=== PATIENT | male | born 1955 | race Caucasian/White ===

== ENCOUNTER → 2017-02-19 | Outpatient (CLI) | payer OTHER ==
[~2017-02-19] MED LIST: BACTRIM DS TAB1 EACH PO; BAYER CHEWABLE81 MG PO; BENAZEPRIL-HCT1 EA11 PO; COLCRYS0.6 MG PO; COMBIVENT; INDOMETHACIN 2525 MG PO; KEFLEX500 M1 PO; MYSOLINE50 MG PO; PERCOCET 5-3251 EACH PO; PRILOSEC 20 MG20 MG PO; SIMVASTATIN40 MG PO; ZOLOFT50 MG PO
== END ==
LOC: RAD 08:47
DX: S93.602A Unspecified sprain of left foot, initial encounter (principal); X58.XXXA Exposure to other specified factors, initial encounter; Y92.89 Other specified places as the place of occurrence of the external cause; Y93.89 Activity, other specified; Y99.8 Other external cause status

== ENCOUNTER → 2017-04-26 | Outpatient (CLI) | payer OTHER | LOC: MRI 09:57 | DX: M47.896 Other spondylosis, lumbar region (principal); M48.06 Spinal stenosis, lumbar region; M48.07 Spinal stenosis, lumbosacral region ==

== ENCOUNTER → 2017-05-11 | Outpatient (CLI) | payer OTHER | LOC: ULTRA 08:18 | DX: N28.1 Cyst of kidney, acquired (principal) ==

== ENCOUNTER → 2018-03-15 | Outpatient (CLI) | payer OTHER | LOC: MRI 07:12 | DX: M47.816 Spondylosis without myelopathy or radiculopathy, lumbar region (principal); M51.26 Other intervertebral disc displacement, lumbar region; M48.061 Spinal stenosis, lumbar region without neurogenic claudication; I10 Essential (primary) hypertension; G20 Parkinson's disease; Z95.5 Presence of coronary angioplasty implant and graft ==

== ENCOUNTER → 2019-04-14 | Outpatient (CLI) | payer OTHER | LOC: RAD 06:49 | DX: J44.9 Chronic obstructive pulmonary disease, unspecified (principal) ==

== ENCOUNTER → 2019-05-13 | Outpatient (CLI) | payer OTHER | LOC: RAD 08:01 | DX: J44.9 Chronic obstructive pulmonary disease, unspecified (principal) ==

== ENCOUNTER → 2019-05-22 | Outpatient (CLI) | payer OTHER ==
[~2019-05-22] MED LIST changes: -COMBIVENT; +COMBIVENT INH; +LUNESTA3 MG PO; +MELATONIN3 M1 PO; +OMEPRAZOLE 20 M20 M1 PO; +PLAVIX 75 MG TA75 MG PO; +PRAMIPEXOLE DIHY1 MG PO; +SINEMET 25-1001 EAC1 PO; +TOPROL XL25 MG PO; +TRELEGY ELLIPT1 EACH INH
== END ==
LOC: CAT 07:35
DX: J84.10 Pulmonary fibrosis, unspecified (principal); R91.1 Solitary pulmonary nodule; I70.0 Atherosclerosis of aorta

== ENCOUNTER → 2019-06-20 | Outpatient (CLI) | payer OTHER ==
[~2019-06-20] VITALS: Ht 193 cm; Wt 122.5 kg
[~2019-06-20] MED LIST changes: -LUNESTA3 MG PO; -TRELEGY ELLIPT1 EACH INH
--- NOTE | ~2019-06-20 | HC ---
[facility] [place] [address] [place] [address] CONSULTATION Name: EMORY MAK Room #: REG [facility].#: [id number] Admission: 06/20/19 Attend Phys: Herb Phillip MD Discharge: Date of : 51 Report #: [id number] THIS REPORT FOR: //name// CC: Herb Fernandez CARDIOLOGY CONSULT HISTORY OF PRESENT ILLNESS: A 63-year-old male with documented coronary artery disease. Was seen by Dr. Phillip of Interventional Radiology, patient of Dr. Fernandez. Asked to evaluate for what suspected a stable coronary artery disease. History of a remote RCA stent perhaps 20 years ago. No prior damage that he is aware of. Has underlying COPD and Parkinsons. The stent was placed in [place], [place]. He is also followed by GI for adenomatous polyps, COPD, long time and continued tobacco use. Compliant with medications. Dr. Phillip addressing popliteal aneurysms and iliac disease today peripherally. I am asked to evaluate him for cardiac catheterization same setting due to symptoms. HOME MEDICATIONS: Have been baby aspirin, benazepril HCT 20/12.5, Sinemet 25/100, Lunesta, carbidopa/levodopa, Combivent, Ellipta, omeprazole, melatonin, simvastatin 40 and sertraline 50, Mirapex 1 mg. PAST MEDICAL HISTORY: Positive for coronary artery disease with stent placed to the right coronary 1996, hypertension, hypercholesterolemia, diabetes, COPD, dermoid cyst. SOCIAL HISTORY: Current tobacco user, alcohol use. He does have a . He is . FAMILY HISTORY: Mother and father both from lung cancer. No premature coronary disease. REVIEW OF SYSTEMS: Negative except for progressive dyspnea and shortness of breath. Obviously some component of COPD he does apparently. PHYSICAL EXAMINATION: VITAL SIGNS: Blood pressure is 160/76, pulse 70. HEENT: Eyes reveal xanthelasmas. Pharynx is clear. NECK: Shows preserved upstrokes without JVD or bruits. LUNGS: Prolonged expiratory phase. CARDIOVASCULAR: Distant heart tones are noted. S1, S2. ABDOMEN: Soft, slightly protuberant. EXTREMITIES: Reveal diminished distal pulses. There is a palpable left popliteal aneurysm. NEUROLOGIC: Nonfocal. SKIN: Warm and dry without xanthoma or ulcer. [address] [address] CONSULTATION Name: EMORY MAK Room #: REG [facility].#: [id number] Admission: 06/20/19 Attend Phys: Herb Phillip MD Discharge: Date of : 51 Report #: [id number] MUSCULOSKELETAL: No gross joint deformity. Generalized arthritic changes. ASSESSMENT: 1. Peripheral vascular disease with popliteal aneurysm SFA and iliac disease as described above. 2. Coronary artery disease with prior stent and stable anginal symptoms. 3. Chronic obstructive pulmonary disease. 4. Hypertension. 5. Hypercholesterolemia. 6. Continued tobacco use. RECOMMENDATIONS AND PLAN: We will proceed to the catheterization lab with Dr. Phillip after peripheral intervention and coronary intervention is indicated, at least coronary angiography to delineate the anatomy. Risks, benefits, alternatives were discussed. We will follow with you. Thank you for asking me to assist in the care of this patient. By: 1344 0300 /nt
[2019-06-20 09:39] VITALS: BP 146/91
--- NOTE | 2019-06-20 18:07 | CATHLAB ---
[facility] [address] [place] [address] INVASIVE PROCEDURE REPORT Name: EMORY MAK Room #: REG Sal#: [id number] Admission: 06/20/19 Attend Phys: Herb Phillip, Discharge: Date of : 51 Report #: [id number] THIS REPORT FOR: //name// APPROVED REPORT Study performed: 06/20/2019 12:41:08 Patient Details Patient Status: In-Patient Room #: The patient is a 63 year-old male Event Personnel Kenan Nugent Oracle Database Manager, Mojgan Moore Sandifer, David Scrub, Penny, Wes RN Procedures Performed Left Heart Cath w/LT [facility] [id number] [facility] Ind[facility] Chest pain Procedure Narrative A 8F 11CM BRITE-TIP sheath was inserted into the RFA 5F^. Coronary angiography was performed using coronary diagnostic catheters. The right coronary system was accessed and visualized with a JR4 catheter. The left coronary system was accessed and visualized with a JL4 catheter. The left ventricle was accessed and visualized with a PIGTAIL catheter. Left ventricular/Aortic Valve gradient assessed via catheter pullback. Left ventriculogram was performed in 30 degree projection. Closure device was deployed with a 8 Fr FISH. The patient tolerated the procedure well and there were no complications associated with the procedure. There was no hematoma. Intraoperative Conscious Sedation Sedation start time: 13.27 Case end Time: 14.05 Fentanyl 300 mcg Versed 6 mg Fluoro Time: 2.30 minutes Dose: DAP 62097.10 cGycm2 1314 mGy Contrast Type and Amount: Visipaque 175 ml Hemodynamics The aortic pressure is 168/78 mmHg with a mean of 114 mmHg. The left ventricular pressure is 160/10 mmHg with a mean of mmHg. The left [facility] [address] [place] [address] INVASIVE PROCEDURE REPORT Name: EMORY MAK Room #: [facility]#: [id number] Admission: 06/20/19 Attend Phys: Herb Phillip, Discharge: Date of : 51 Report #: [id number] ventricular end diastolic pressure is 31 mmHg. Pullback from the left ventricle to the aorta revealed no gradient across the aortic valve. Pullback from the left ventricle to the aorta revealed a mm gradient across the aortic valve. PCI Technique Lesion Percutaneous coronary intervention was performed on the Unspecified. Conclusion #1 normal left ventricular size and inferior basilar hypokinetic segment focal EF 55%. #2 short left main free of disease giving rise to LAD and circumflex #3 LAD is moderately heavily proximal and mid vessel calcification the ostial LAD is a 60-70% eccentric lesion with mild disease in the distal vessel. #4 circumflex OM also extensive calcification moderate disease is noted no high-grade occlusive disease. There is left to left collateralization of the occluded RCA. #5 RCA proximally occluded extensive collateralization via the left system. Recommendations and plan: Continue aggressive risk factor modification. No indication for intervention but will evaluate the ostial LAD lesion would nuclear stress testing. Patient to proceed on with peripheral vascular intervention. Follow-up will be arranged. <ELECTRONICALLY SIGNED> By: Kenan Nugent MD, [facility] 06/20/191806 06 06 Kenan Nugent MD, FACC /INF
== END | disposition home or self-care (01) ==
LOC: CATH 09:01
DX: R07.9 Chest pain, unspecified (principal); I25.10 Atherosclerotic heart disease of native coronary artery without angina pectoris; I70.212 Atherosclerosis of native arteries of extremities with intermittent claudication, left leg; I72.8 Aneurysm of other specified arteries; I70.1 Atherosclerosis of renal artery; I10 Essential (primary) hypertension; M10.9 Gout, unspecified; J44.9 Chronic obstructive pulmonary disease, unspecified; G20 Parkinson's disease; E78.5 Hyperlipidemia, unspecified; F17.210 Nicotine dependence, cigarettes, uncomplicated; Z98.890 Other specified postprocedural states; Z79.899 Other long term (current) drug therapy; Z82.49 Family history of ischemic heart disease and other diseases of the circulatory system; Z79.82 Long term (current) use of aspirin

== ENCOUNTER → 2019-07-30 | Outpatient (CLI) | payer OTHER ==
[~2019-07-30] VITALS: Ht 193 cm; Wt 120.2 kg
[~2019-07-30] MED LIST changes: +LUNESTA3 MG PO; +TRELEGY ELLIPT1 EACH INH
--- NOTE | 2019-08-01 17:06 | PATH ---
[facility] [address] [place] [address] PATHOLOGY RPT PROCEDURE Name: DAVIDJAZMINEMORY Room #: REG [facility]on.#: [id number] Admission: 07/30/19 Date of : 51 Discharge: Report #: [id number] Path Case #: [id number] LCA Accession Number: [id number] . 01 Material submitted: . colon - POLYP AT SIGMOID COLON. Modifiers: sigmoid . 01 Clinical history: . Preop DX: Hx of polyps and diverticulosis Postop DX: Colon polyps . 02 Diagnosis: Polyp, sigmoid polyp, endoscopic biopsy: - Tubular adenoma. - Negative for high-grade dysplasia. - Cauterized margin showing unremarkable mucosa. 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 02 Electronically signed: . Yue Wheeler MD, Pathologist NPI- [id number] . 01 Gross description: . Received in formalin labeled "Emory Mak, polyp at sigmoid colon," is a polypoid segment of dark brown soft tissue measuring 0.8 x 0.7 x 0.5 cm in greatest dimensions. The surgical margin is inked, and the specimen is trisected and submitted entirely in cassette A1. (DAC; 07/31/2019) XDC/XDC 07/31/2019 1249 Local . 02 Pathologist provided ICD-10: D12.5 . 02 CPT . 445229 Specimen Comment: A courtesy copy of this report has been sent to [phone], [phone] Specimen Comment: [phone] Specimen Comment: Report sent to and Performed at: [address] [id number] MD Jonathan Morton MD Phone: [phone] Performed at: [address] [id number] [address] [address] PATHOLOGY RPT PROCEDURE Name: EMORY MAK Room #: REG [facility] Huang#: [id number] Admission: 07/30/19 Date of : 51 Discharge: Report #: [id number] Path Case #: [id number] MD Yue Wheeler MD Phone: [phone]
--- NOTE | 2019-08-06 08:11 | P ---
[facility] [place] [address] PROCEDURE REPORT Name: EMORY MAK [facility] #: [facility] [id number] Admission: 07/30/19 Attend Phys: Orlando Alfredo Discharge: Date of : 51 Report #: [id number] THIS REPORT FOR: //name// CC: Orlando Fernandez MD DATE OF SERVICE: 07/30/2019 PROCEDURE PERFORMED: Colonoscopy with polypectomy. HISTORY OF PRESENT ILLNESS: The patient is a 63-year-old male with a history of colon polyps 5 years ago, here for routine followup. Denies any symptoms other than mild constipation. No family history of colon cancer. DESCRIPTION OF PROCEDURE: The risks and benefits of the procedure were explained to the patient, those risks including but not limited to bleeding, perforation and the risk of sedation. He understood these risks and gave informed consent. Propofol was given per anesthesia. Next, a digital rectal exam was initially performed, which was normal. Next, using a standard Olympus colonoscope, the scope was placed in the patient's anus and advanced under direct vision to the cecum. The overall prep was good in most areas, fair in some areas. Multiple washings and aspirations were performed. Most areas were visualized. The cecum and ileocecal valve were normal in appearance. The ascending, transverse and descending colon were normal. Multiple diverticula were noted in the sigmoid colon. Also noted in the sigmoid colon was a 7 mm partially pedunculated polyp. This was removed by snare cautery. The rectal mucosa was normal. On retroflexion, small nonbleeding internal hemorrhoids were noted. The scope was then withdrawn and the procedure terminated. The patient tolerated the procedure well. IMPRESSION: 1. Sigmoid colon polyp. 2. Sigmoid diverticulosis. 3. Internal hemorrhoids. 4. Otherwise, normal colonoscopy. RECOMMENDATIONS: 1. Await biopsy results. 2. Repeat colonoscopy in 3 years due to fair prep in areas. [address] [address] PROCEDURE REPORT Name: EMORY MAK Yolanda Room #: REG [facility] [id number] Admission: 07/30/19 Attend Phys: Orlando Alfredo Discharge: Date of : 53 Report #: [id number] Thank you for allowing me to participate in his care. <ELECTRONICALLY SIGNED> By: Orlando Arteaga MD 08/06/19 0811 0921 1037 Orlando Arteaga MD /nt
== END | disposition home or self-care (01) ==
LOC: GI 06-25 08:42
DX: K59.00 Constipation, unspecified (principal); D12.5 Benign neoplasm of sigmoid colon; K57.30 Diverticulosis of large intestine without perforation or abscess without bleeding; K64.8 Other hemorrhoids; Z86.010 Personal history of colon polyps; I10 Essential (primary) hypertension; I25.10 Atherosclerotic heart disease of native coronary artery without angina pectoris; I73.9 Peripheral vascular disease, unspecified; E78.5 Hyperlipidemia, unspecified; K21.9 Gastro-esophageal reflux disease without esophagitis; F32.9 Major depressive disorder, single episode, unspecified; F41.9 Anxiety disorder, unspecified; J43.9 Emphysema, unspecified; G20 Parkinson's disease; G47.30 Sleep apnea, unspecified; F17.210 Nicotine dependence, cigarettes, uncomplicated; Z98.890 Other specified postprocedural states; Z79.899 Other long term (current) drug therapy; Z88.8 Allergy status to other drugs, medicaments and biological substances; Z79.82 Long term (current) use of aspirin
CPT/HCPCS: 62110; 62900

== ENCOUNTER → 2019-08-29 | Outpatient (CLI) | payer OTHER | LOC: CAT 08:00 | DX: R91.1 Solitary pulmonary nodule (principal); I25.10 Atherosclerotic heart disease of native coronary artery without angina pectoris; R91.8 Other nonspecific abnormal finding of lung field; J84.10 Pulmonary fibrosis, unspecified; M47.814 Spondylosis without myelopathy or radiculopathy, thoracic region ==

== ENCOUNTER → 2019-10-21 | Outpatient (CLI) | payer OTHER | LOC: CAT 14:16 | DX: J84.10 Pulmonary fibrosis, unspecified (principal); R91.1 Solitary pulmonary nodule; I25.10 Atherosclerotic heart disease of native coronary artery without angina pectoris ==

== ENCOUNTER → 2019-10-30 | Outpatient (CLI) | payer OTHER | LOC: SJCVCIMAG 10:13 | DX: I65.23 Occlusion and stenosis of bilateral carotid arteries (principal); I10 Essential (primary) hypertension; I25.10 Atherosclerotic heart disease of native coronary artery without angina pectoris; I73.9 Peripheral vascular disease, unspecified; J44.9 Chronic obstructive pulmonary disease, unspecified; E78.00 Pure hypercholesterolemia, unspecified; F17.200 Nicotine dependence, unspecified, uncomplicated; Z79.82 Long term (current) use of aspirin; Z79.899 Other long term (current) drug therapy ==

== ENCOUNTER → 2020-02-06 | Outpatient (CLI) | payer OTHER | LOC: CAT 10:49 | PROVIDERS: ATTEND Pediatrics | DX: R91.8 Other nonspecific abnormal finding of lung field (principal); N28.1 Cyst of kidney, acquired; M51.26 Other intervertebral disc displacement, lumbar region; J98.4 Other disorders of lung; I25.10 Atherosclerotic heart disease of native coronary artery without angina pectoris ==

== ENCOUNTER → 2020-05-18 | Outpatient (CLI) | payer OTHER | LOC: SJCVCIMAG 08:40 | PROVIDERS: ATTEND Internal Medicine Cardiovascular Disease | DX: I25.10 Atherosclerotic heart disease of native coronary artery without angina pectoris (principal); I73.9 Peripheral vascular disease, unspecified; I72.4 Aneurysm of artery of lower extremity; I10 Essential (primary) hypertension; E78.00 Pure hypercholesterolemia, unspecified; G20 Parkinson's disease; J44.9 Chronic obstructive pulmonary disease, unspecified; F17.210 Nicotine dependence, cigarettes, uncomplicated; Z95.820 Peripheral vascular angioplasty status with implants and grafts; Z79.899 Other long term (current) drug therapy ==

== ENCOUNTER → 2020-12-14 | Outpatient (CLI) | payer OTHER | LOC: SJCVCIMAG 09:43 | PROVIDERS: ATTEND Internal Medicine Cardiovascular Disease | DX: I65.23 Occlusion and stenosis of bilateral carotid arteries (principal); I70.202 Unspecified atherosclerosis of native arteries of extremities, left leg; I72.4 Aneurysm of artery of lower extremity; I77.9 Disorder of arteries and arterioles, unspecified; I25.10 Atherosclerotic heart disease of native coronary artery without angina pectoris; I10 Essential (primary) hypertension; E78.00 Pure hypercholesterolemia, unspecified; J44.9 Chronic obstructive pulmonary disease, unspecified; G20 Parkinson's disease; R07.9 Chest pain, unspecified; R06.02 Shortness of breath; F17.210 Nicotine dependence, cigarettes, uncomplicated; Z95.5 Presence of coronary angioplasty implant and graft; Z98.890 Other specified postprocedural states; Z95.828 Presence of other vascular implants and grafts; Z79.82 Long term (current) use of aspirin; Z79.899 Other long term (current) drug therapy; Z82.49 Family history of ischemic heart disease and other diseases of the circulatory system ==

== ENCOUNTER → 2021-02-25 | Outpatient (CLI) | payer OTHER | LOC: SJCVCIMAG 08:28 | PROVIDERS: ATTEND Internal Medicine Cardiovascular Disease | DX: I08.1 Rheumatic disorders of both mitral and tricuspid valves (principal); R06.00 Dyspnea, unspecified ==

== ENCOUNTER → 2021-02-28 | Outpatient (CLI) | payer OTHER ==
[~2021-02-28] MED LIST changes: +AZITHROMYCIN500 MG PO; +PREDNISONE 10 M10 MG PO
[2021-02-28 11:09] LABS: CREATININE 1.1 mg/dL (0.7-1.3)
== END ==
LOC: CAT 09:49
PROVIDERS: ATTEND Pediatrics
DX: R91.1 Solitary pulmonary nodule (principal); J84.10 Pulmonary fibrosis, unspecified; K44.9 Diaphragmatic hernia without obstruction or gangrene; N28.1 Cyst of kidney, acquired; D71 Functional disorders of polymorphonuclear neutrophils; I70.0 Atherosclerosis of aorta; I25.10 Atherosclerotic heart disease of native coronary artery without angina pectoris

== ENCOUNTER 2021-04-10 03:41 | Emergency (ER) | payer OTHER ==
[~2021-04-10] VITALS: Ht 190.5 cm; Wt 117.9 kg
[~2021-04-10 03:41] MED LIST changes: -AZITHROMYCIN500 MG PO; -PREDNISONE 10 M10 MG PO
[2021-04-10 05:09] LABS: ABSOLUTE NEUTROPHILS 5.3 thou/uL (1.4-8.2); BASOPHILS 0.7 % (0.0-2.0); EOSINOPHILS 1.9 % (0.0-3.0); HEMATOCRIT 35.8 % (42.0-52.0); HEMOGLOBIN 11.9 gm/dL (14.0-18.0); LYMPHOCYTES 15.9 % (24.0-44.0); MCH 32.3 pg (26.0-34.0); MCHC 33.2 g/dL (28.0-37.0); MCV 97.4 fL (80.0-100.0); MONOCYTES 8.1 % (1.0-8.0); PLATELET COUNT 156 thou/uL (150-400); POLYS 73.4 % (36.0-66.0); RBC 3.68 mil/uL (4.50-6.00); RDW 16.6 % (10.5-14.5); WBC 7.2 thou/uL (4.0-11.0)
[2021-04-10 05:18] LABS: CALCIUM 8.7 mg/dL (8.5-10.1); CREATININE 1.1 mg/dL (0.7-1.3); POTASSIUM 4.3 mmol/L (3.5-5.1)
[2021-04-10 05:28] LABS: ALBUMIN 3.5 g/dL (3.4-5.0); TOTAL BILIRUBIN 0.7 mg/dL (0.2-1.0); TOTAL PROTEIN 7.1 g/dL (6.4-8.2)
[2021-04-10] MEDS ORDERED: PREDNISONE 10 M10 MG PO (05:54)
[2021-04-10] MEDS ORDERED: AZITHROMYCIN500 MG PO (05:54)
[2021-04-10 06:00] VITALS: BP 158/72
--- NOTE | 2021-04-11 07:28 | EKG ---
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
== END 2021-04-10 06:00 | disposition home or self-care (01) ==
LOC: ER 03:41
PROVIDERS: Emergency Medicine
DX: J44.1 Chronic obstructive pulmonary disease with (acute) exacerbation (principal); Z20.822 Contact with and (suspected) exposure to COVID-19; I10 Essential (primary) hypertension; E78.5 Hyperlipidemia, unspecified; F32.9 Major depressive disorder, single episode, unspecified; Z79.2 Long term (current) use of antibiotics; Z79.82 Long term (current) use of aspirin; Z79.899 Other long term (current) drug therapy

== ENCOUNTER → 2021-04-21 | Outpatient (CLI) | payer OTHER ==
[~2021-04-21] MED LIST changes: +AZITHROMYCIN500 MG PO; +CARBIDOPA-LEVO1 EAC7 PO; +PREDNISONE 10 M10 MG PO; +RASAGILINE MESYL1 MG PO; +ROSUVASTATIN CA20 MG PO; +VASCEPA1 GM PO
== END ==
LOC: RAD 09:03
PROVIDERS: ATTEND Pediatrics
DX: J98.4 Other disorders of lung (principal)

== ENCOUNTER 2021-04-23 08:02 | Inpatient (IN) | payer OTHER ==
[~2021-04-23] VITALS: Ht 188 cm; Wt 117.9 kg
[~2021-04-23 08:02] MED LIST changes: -CARBIDOPA-LEVO1 EAC7 PO; -RASAGILINE MESYL1 MG PO; -ROSUVASTATIN CA20 MG PO; -VASCEPA1 GM PO
[2021-04-23] MEDS ORDERED: CARBIDOPA-LEVO1 EAC7 PO (08:26)
[2021-04-23] MEDS ORDERED: RASAGILINE MESYL1 MG PO (08:28)
[2021-04-23] MEDS ORDERED: ROSUVASTATIN CA20 MG PO (08:29)
[2021-04-23] MEDS ORDERED: PLAVIX 75 MG TA75 MG PO (08:33)
[2021-04-23] MEDS ORDERED: VASCEPA1 GM PO (08:34)
[2021-04-23 08:59] LABS: BASOPHILS 0.4 % (0.0-2.0); EOSINOPHILS 1.1 % (0.0-3.0); HEMATOCRIT 38.7 % (42.0-52.0); HEMOGLOBIN 12.8 gm/dL (14.0-18.0); MCH 32.6 pg (26.0-34.0); MCV 98.8 fL (80.0-100.0); MONOCYTES 8.1 % (1.0-8.0); PLATELET COUNT 165 thou/uL (150-400); POLYS 75.4 % (36.0-66.0); RBC 3.92 mil/uL (4.50-6.00); RDW 16.9 % (10.5-14.5); WBC 6.7 thou/uL (4.0-11.0)
[2021-04-23 09:02] LABS: CREATININE 1.1 mg/dL (0.7-1.3); POTASSIUM 4.4 mmol/L (3.5-5.1)
[2021-04-23 09:12] LABS: ALBUMIN 3.9 g/dL (3.4-5.0); DIRECT BILIRUBIN 0.3 mg/dL (<0.1-0.2); TOTAL BILIRUBIN 1.4 mg/dL (0.2-1.0); TOTAL PROTEIN 7.3 g/dL (6.4-8.2)
[2021-04-23 13:45] VITALS: BP 146/55
[2021-04-23 14:00] VITALS: BP 152/92
--- NOTE | 2021-04-23 15:20 | NUR ---
ADMISSION NOTE: received pt to rm 204 from ED. Pt currently on RA, sating 95%. RT & pt agreeable for NC PRN. Pt given lasix, urinal at bedside & in bathroom. SR on monitor, SA & tachy after breathing treatment. Consents signed. High fall precautions in place d/t prev. fall. SBA to toilet, gait is steady. Band & socks on. Pt & educated about unit policies. All questions answered & no other needs at this time.
[2021-04-23 20:15] VITALS: BP 139/73
--- NOTE | 2021-04-24 02:43 | NUR ---
PT IS ALERT AND ORIENTED X4. LUNGS ARE CLEAR TO DIMINISHED. ABDOMEN IS ROUND AND SOFT. BOWEL SOUNDS ACTIVE NO EDEMA NOTED. NO SKIN ISSUES. AT BEDSIDE AND VISTED THIS EVENING BEFORE HOURS WHERE OVER. ON CPAP MACHINE AND SLEEP STUDY DONE PER RT. DENIES ANY PAIN. CALL LIGHT WITHIN REACH IF NEEDS ASISTANCE PER NURSING.
[2021-04-24 04:45] VITALS: BP 148/78
[2021-04-24 05:35] LABS: ABSOLUTE NEUTROPHILS 5.2 thou/uL (1.4-8.2); BASOPHILS 0.1 % (0.0-2.0); HEMATOCRIT 38.4 % (42.0-52.0); HEMOGLOBIN 12.8 gm/dL (14.0-18.0); LYMPHOCYTES 12.7 % (24.0-44.0); MCHC 33.5 g/dL (28.0-37.0); MCV 98.5 fL (80.0-100.0); PLATELET COUNT 164 thou/uL (150-400); POLYS 82.2 % (36.0-66.0); RBC 3.89 mil/uL (4.50-6.00); RDW 17.3 % (10.5-14.5); WBC 6.3 thou/uL (4.0-11.0)
[2021-04-24 05:47] LABS: ALBUMIN 3.2 g/dL (3.4-5.0); CALCIUM 8.8 mg/dL (8.5-10.1); CREATININE 1.1 mg/dL (0.7-1.3); MAGNESIUM 2.1 mg/dL (1.8-2.4); PHOSPHORUS 3.5 mg/dL (2.6-4.7); POTASSIUM 4.3 mmol/L (3.5-5.1); TOTAL PROTEIN 6.6 g/dL (6.4-8.2)
[2021-04-24 08:19] VITALS: BP 143/80
[2021-04-24 11:28] VITALS: BP 141/96
[2021-04-24 15:26] VITALS: BP 136/68
--- NOTE | 2021-04-24 18:20 | NUR ---
Assumed care of pt this AM. Pt is A&O x4, on RA. Complains of no chest pain & no shortness of air. in room. High fall precautions d/c'ed today. Monitoring I&O w/ urinal in bathroom. Up ad valerie. Continue to follow POC
[2021-04-24 19:36] VITALS: BP 141/85
[2021-04-25 00:37] VITALS: BP 144/92
[2021-04-25 03:57] LABS: ABSOLUTE NEUTROPHILS 8.4 thou/uL (1.4-8.2); BASOPHILS 0.1 % (0.0-2.0); EOSINOPHILS 0.1 % (0.0-3.0); HEMATOCRIT 38.3 % (42.0-52.0); LYMPHOCYTES 10.6 % (24.0-44.0); MCH 33.3 pg (26.0-34.0); MCV 98.1 fL (80.0-100.0); MONOCYTES 5.5 % (1.0-8.0); PLATELET COUNT 182 thou/uL (150-400); POLYS 83.7 % (36.0-66.0); RBC 3.91 mil/uL (4.50-6.00); RDW 17.5 % (10.5-14.5)
[2021-04-25 04:03] LABS: CALCIUM 8.9 mg/dL (8.5-10.1); MAGNESIUM 2.3 mg/dL (1.8-2.4); PHOSPHORUS 3.2 mg/dL (2.6-4.7); POTASSIUM 4.6 mmol/L (3.5-5.1)
[2021-04-25 04:55] VITALS: BP 149/82
[2021-04-25 07:35] VITALS: BP 144/88
--- NOTE | 2021-04-25 07:50 | NUR ---
PT RESTING QUIETLY IN ROOM WITH CPAP ON, NO C/O PAIN, VSS, VOIDING PER URINAL, WILL CON'T TO MONITOR PER PPOC.
--- NOTE | 2021-04-25 10:38 | NUR ---
ORDERS RECEIVED AND CHART REVIEWED. PER EMR, Pt IS UP AD HERBERT. SPOKE TO Pt AND HIS WHO BOTH STATE THAT Pt IS GETTING AROUND SAFELY, & Pt STATES THAT HE DOES NOT NEED/WANT ANY P.T. PRIOR TO D/C HE HAS HAD P.T. TWICE BEFORE AND KNOWS WHAT IT'S ABOUT AND DOES NOT NEED ANY P.T. PRIOR TO D/C THIS ADMIT. O.T. EVAL'D Pt AND D/C'D HIM. WILL D/C P.T. AT THIS TIME. NSG INFORMED.
[2021-04-25 11:25] VITALS: BP 132/79
[2021-04-25 15:25] VITALS: BP 149/82
--- NOTE | 2021-04-25 15:59 | NUR ---
PT RESTING COMFORTABLY. PT AFEBRILE, ADEQUATE UOP, NO BM, APPROPRIATE APPETITE. PT AND HAVE BEEN THOUROUGHLY UPDATED AND EDUCATED ON PT CONDITION AND POC. PT PROGRESSING TOWARDS POC.
[2021-04-25 20:15] VITALS: BP 159/82
--- NOTE | 2021-04-26 04:24 | NUR ---
RECEIVED PATIENT ON BED ALERT AND ORIENTED X4.ON ROOM AIR BREATHING SPONTANEOULSY, USES CPAP AT NIGHT DURING SLEEPING.HAD COMPLAINT FOR ACID REFLUX, INFORMED RAILROAD CROSSING PROTECTION MAINTAINER ORDERED TO GIVE TUMS PRN.ALL NEEDS ATTENDED.PATIENT PROGRESSING TOWARDS PLAN OF CARE.
[2021-04-26 04:55] VITALS: BP 141/67
--- NOTE | 2021-04-26 07:33 | EKG ---
[place] [address] [address] [facility] [place] [address] ELECTROCARDIOGRAM REPORT Name: OBDULIOEMORY ADAIR Room #: 204-P ADM IN M.R.#: [id number] Admission: 04/23/21 Attend Phys: Chasidy Marx MD Discharge: Date of : 51 Report #: [id number] [facility] ED Test Date: 2021-04-23 Test Time: 08:19:44 Pat Name: EMORY MAK Department: Room: 204 Gender: M Supervisor Winter: : 1955 Requested By: Lucinda Singh Order Number: [id number] MD: Jw Leone Measurements Intervals [place] Rate: 92 P: 68 RI: 167 QRS: 61 QRSD: 94 T: 41 QT: 364 QTc: 451 Interpretive Statements Sinus rhythm Atrial premature complex Left atrial enlargement Compared to ECG 04/10/2021 05:17:39 Atrial premature complex(es) now present Electronically Signed On 04-26-2021 7:33:44 CDT by Jw Leone [email or web address] <ELECTRONICALLY SIGNED> By: Jw Leone MD, [facility] 04/26/2133 8 8 Jw Leone MD, FACC /EPI
[2021-04-26 07:45] VITALS: BP 134/86
[2021-04-26 11:45] VITALS: BP 148/89
[2021-04-26] MEDS ORDERED: LEVALBUTER0.63 MG/3 INH (12:47)
[2021-04-26] MEDS ORDERED: VERAPAMIL HCL 880 M1 PO (12:47)
[2021-04-26] MEDS ORDERED: LASIX 40 MG TAB40 M1 PO (12:47)
[2021-04-26] MEDS ORDERED: PREDNISONE 20 M20 MG PO (12:47)
[2021-04-26 14:50] VITALS: BP 148/89
--- NOTE | 2021-04-26 15:31 | NUR ---
patient discharged, no questions or conerns at time of discharge. Taken by wheelchair to private vehicle with . iv and tele removed.
== END 2021-04-26 15:55 | disposition home or self-care (01) | DRG 291 ==
LOC: ER 08:02 → EROBS 10:36 → 2N 10:36
PROVIDERS: Emergency Medicine; ADMIT Internal Medicine; ATTEND Internal Medicine
PROC: 5A09457 Assistance with Respiratory Ventilation, 24-96 Consecutive Hours, Continuous Positive Airway Pressure (ICD-10-PCS; principal; 2021-04-23)
DX: I11.0 Hypertensive heart disease with heart failure (principal); J96.01 Acute respiratory failure with hypoxia; I50.31 Acute diastolic (congestive) heart failure; R65.11 Systemic inflammatory response syndrome (SIRS) of non-infectious origin with acute organ dysfunction; J44.1 Chronic obstructive pulmonary disease with (acute) exacerbation; I48.91 Unspecified atrial fibrillation; I50.33 Acute on chronic diastolic (congestive) heart failure; Z20.822 Contact with and (suspected) exposure to COVID-19; F32.9 Major depressive disorder, single episode, unspecified; E78.5 Hyperlipidemia, unspecified; F12.90 Cannabis use, unspecified, uncomplicated; I25.10 Atherosclerotic heart disease of native coronary artery without angina pectoris; G47.33 Obstructive sleep apnea (adult) (pediatric); F17.210 Nicotine dependence, cigarettes, uncomplicated; G20 Parkinson's disease; E66.9 Obesity, unspecified; E11.51 Type 2 diabetes mellitus with diabetic peripheral angiopathy without gangrene; M1A.00X0 Idiopathic chronic gout, unspecified site, without tophus (tophi); Z79.82 Long term (current) use of aspirin; Z95.5 Presence of coronary angioplasty implant and graft; Z83.3 Family history of diabetes mellitus; Z82.49 Family history of ischemic heart disease and other diseases of the circulatory system; Z68.33 Body mass index [BMI] 33.0-33.9, adult; Z71.6 Tobacco abuse counseling; Z95.820 Peripheral vascular angioplasty status with implants and grafts; Z79.899 Other long term (current) drug therapy
CPT/HCPCS: 10081

== ENCOUNTER → 2021-05-03 | Outpatient (CLI) | payer OTHER ==
[~2021-05-03] MED LIST changes: +CARBIDOPA-LEVO1 EAC7 PO; +LASIX 40 MG TAB40 M1 PO; +LEVALBUTER0.63 MG/3 INH; +PREDNISONE 20 M20 MG PO; +RASAGILINE MESYL1 MG PO; +ROSUVASTATIN CA20 MG PO; +VASCEPA1 GM PO; +VERAPAMIL HCL 880 M1 PO
== END ==
LOC: SJCVC 10:21
PROVIDERS: ATTEND Internal Medicine Cardiovascular Disease
DX: R94.31 Abnormal electrocardiogram [ECG] [EKG] (principal); I48.91 Unspecified atrial fibrillation; I25.10 Atherosclerotic heart disease of native coronary artery without angina pectoris; E78.00 Pure hypercholesterolemia, unspecified; I73.9 Peripheral vascular disease, unspecified; I77.9 Disorder of arteries and arterioles, unspecified; I11.0 Hypertensive heart disease with heart failure; I50.9 Heart failure, unspecified; J44.9 Chronic obstructive pulmonary disease, unspecified; F17.210 Nicotine dependence, cigarettes, uncomplicated; F12.90 Cannabis use, unspecified, uncomplicated; Z79.899 Other long term (current) drug therapy

== ENCOUNTER → 2021-05-24 | Outpatient (CLI) | payer OTHER ==
[~2021-05-24] MED LIST changes: +ALLOPURINOL 10100 M3 PO; +CARDIZEM CD240 M1 PO; +WELLBUTRIN XL300 MG PO; +XARELTO20 MG PO
== END ==
LOC: SJCVCIMAG 08:18
PROVIDERS: ATTEND Nuclear Medicine Nuclear Cardiology
DX: I08.3 Combined rheumatic disorders of mitral, aortic and tricuspid valves (principal); I48.91 Unspecified atrial fibrillation; R94.31 Abnormal electrocardiogram [ECG] [EKG]; I25.10 Atherosclerotic heart disease of native coronary artery without angina pectoris; J44.9 Chronic obstructive pulmonary disease, unspecified; I73.9 Peripheral vascular disease, unspecified; I77.9 Disorder of arteries and arterioles, unspecified; F17.210 Nicotine dependence, cigarettes, uncomplicated; I11.9 Hypertensive heart disease without heart failure; F12.90 Cannabis use, unspecified, uncomplicated; Z79.899 Other long term (current) drug therapy; Z95.818 Presence of other cardiac implants and grafts

== ENCOUNTER → 2021-05-26 | Outpatient (CLI) | payer OTHER ==
[~2021-05-26] VITALS: Ht 188 cm; Wt 119.0 kg
[2021-05-26 08:09] VITALS: BP 156/89
--- NOTE | 2021-05-26 09:15 | TEE ---
[facility] [address] [place] [address] TRANSESOPHAGEAL ECHOCARDIOGRAM Name: EMORY MAK Room #: REG [facility]#: [id number] Admission: 05/26/21 Attend Phys: Carlos Hinkle MD, Discharge: Date of : 51 Report #: [id number] THIS REPORT FOR: cc: Bhanu Fernandez MD, Rene P. MD Lundgren, Craig H. MD [facility] ~ APPROVED REPORT Study performed: 05/26/2021 07:52:17 EXAM: Transesophageal Echocardiogram with Doppler and cadioversion Patient Location: Out-Patient Room #: 9 Status: routine BSA: 2.43 HR: 96 bpm BP: 135/75 mmHg Rhythm: Atrial Fibrillation Other Information Study Quality: Good Indications Atrial Fibrillation Echo Enhancing Agent Indication: Rule out Shunt Agent(s) / Amount(s) Used: Agitated Saline 7 cc Procedure After obtaining informed consent, patient underwent transesophageal echo in the Attending Urologist Holding. Type of Sedation : Conscious Sedation Sedation was administered by Nurse. Sedation start time: 819 Case end Time: 834 Sedation was achieved intravenously with: Versed (6 mg) Fentanyl (100mcg) Transesophageal probe was inserted and advanced into esophagus without difficulty by Carlos Hinkle MD. Echo enhancement indication: R/O Septal defect. Echo enhancement agent administered: Agitated Saline The BEATRICE was performed without complications. Synchronized Cardioversion attempted: 100 Joules X 1, 120 Joules X 2, [facility] [address] [place] [address] TRANSESOPHAGEAL ECHOCARDIOGRAM Name: EMORY MAK Room #: REG [facility].#: [id number] Admission: 05/26/21 Attend Phys: Carlos Hinkle, Discharge: Date of : 51 Report #: [id number] 150 Joules X 1 Rhythm following Synchronized Cardioversion: Brief sinus then recurrent atrial fibrillation Throughout the procedure, the blood pressure, pulse oximetry, cardiac rhythm, and rate were monitored. The patient tolerated the procedure without adverse effects. Recovery from conscious sedation was uneventful and vital signs were stable. Left Ventricle The left ventricle is normal size. There is normal LV segmental wall motion. Mild concentric left ventricular hypertrophy. The left ventricular systolic function is normal. The left ventricular ejection fraction is within the normal range. LVEF is 55-60%. Right Ventricle The right ventricle is normal size. The right ventricular systolic function is normal. Atria Left atrium is dilated. No thrombus is visualized in the left atrium or appendage. No shunting by contrast bubble injection Right atrium is at the upper limits of normal. Aortic Valve The aortic valve is normal in structure. No aortic regurgitation is present. There is no aortic valvular stenosis. Mitral Valve Mild mitral annular calcification Mild to moderate mitral regurgitation. No evidence of mitral valve stenosis. Tricuspid Valve The tricuspid valve is normal in structure. Mild tricuspid regurgitation. Pulmonic Valve The pulmonary valve is normal in structure. There is no pulmonic valvular regurgitation. Great Vessels The aortic root is normal in size. Mild atherosclerotic plaque is present in the aorta. IVC is normal in size and collapses >50% with inspiration. Pericardium [facility] [address] [address] TRANSESOPHAGEAL ECHOCARDIOGRAM Name: EMORY MAK Room #: REG Sal#: [id number] Admission: 05/26/21 Attend Phys: Carlos Hinkle, Discharge: Date of : 51 Report #: [id number] There is no pericardial effusion. <Conclusion> The left ventricular systolic function is normal. There is normal LV segmental wall motion. LVEF is 55-60%. Left atrium is dilated. No thrombus is visualized in the left atrium or appendage. No shunting by contrast bubble injection The aortic valve is normal in structure. No aortic regurgitation or stenosis Mild mitral annular calcification. Mild to moderate mitral regurgitation. Mild atherosclerotic plaque is present in the aorta. There is no pericardial effusion. Inability to maintain sinus rhythm following 3 biphasic synchronous joules shocks. <ELECTRONICALLY SIGNED> By: Carlos Hinkle MD, [facility] 05/26/21914 4 4 Carlos Hinkle MD, FACC /INF
--- NOTE | 2021-05-26 15:33 | EKG ---
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: : 1955 Requested By: Carlos Hinkle Order Number: [id number] MD: Jw Leone Measurements Intervals [place] Rate: 95 P: DC: QRS: 56 QRSD: 85 T: 75 QT: 355 QTc: 447 Interpretive Statements Atrial fibrillation Compared to ECG 04/23/2021 08:19:44 Sinus rhythm no longer present Atrial premature complex(es) no longer present Atrial abnormality no longer present Electronically Signed On 05-26-2021 15:33:33 CDT by Jw Leone [email or web address] <ELECTRONICALLY SIGNED> By: Jw Leone MD, [facility] 05/26/21 1533 0748 7 Jw Leone MD, FAC /EPI
== END | disposition home or self-care (01) ==
LOC: CATH 06:25
PROVIDERS: ATTEND Internal Medicine
DX: I48.91 Unspecified atrial fibrillation (principal); I08.1 Rheumatic disorders of both mitral and tricuspid valves; I70.0 Atherosclerosis of aorta; I11.0 Hypertensive heart disease with heart failure; I50.30 Unspecified diastolic (congestive) heart failure; I25.10 Atherosclerotic heart disease of native coronary artery without angina pectoris; J44.9 Chronic obstructive pulmonary disease, unspecified; M10.9 Gout, unspecified; G20 Parkinson's disease; F17.210 Nicotine dependence, cigarettes, uncomplicated; Z98.890 Other specified postprocedural states; Z79.899 Other long term (current) drug therapy; Z82.49 Family history of ischemic heart disease and other diseases of the circulatory system

== ENCOUNTER → 2021-06-08 | Outpatient (CLI) | payer OTHER | LOC: SJCVC 13:17 | PROVIDERS: ATTEND Internal Medicine Cardiovascular Disease | DX: R94.31 Abnormal electrocardiogram [ECG] [EKG] (principal); I48.91 Unspecified atrial fibrillation; J44.9 Chronic obstructive pulmonary disease, unspecified; G47.33 Obstructive sleep apnea (adult) (pediatric); I25.10 Atherosclerotic heart disease of native coronary artery without angina pectoris; I73.9 Peripheral vascular disease, unspecified; G20 Parkinson's disease; E78.5 Hyperlipidemia, unspecified; E11.9 Type 2 diabetes mellitus without complications; F17.210 Nicotine dependence, cigarettes, uncomplicated; F12.90 Cannabis use, unspecified, uncomplicated; I50.30 Unspecified diastolic (congestive) heart failure; I11.0 Hypertensive heart disease with heart failure; Z95.818 Presence of other cardiac implants and grafts; Z95.828 Presence of other vascular implants and grafts ==

== ENCOUNTER → 2021-06-21 | Outpatient (CLI) | payer OTHER ==
[~2021-06-21] MED LIST changes: +DILT-XR120 MG PO; +MULTAQ 400 MG400 MG PO
[2021-06-21 09:57] LABS: CREATININE 1.2 mg/dL (0.7-1.3)
== END ==
LOC: CAT 08:57
PROVIDERS: ATTEND Internal Medicine Cardiovascular Disease
DX: I48.91 Unspecified atrial fibrillation (principal)

== ENCOUNTER 2021-06-23 06:28 | Observation (INO) | payer OTHER ==
[2021-06-23] VITALS (15 sets, daily range): BP systolic 122–171; BP diastolic 63–103
[~2021-06-23] VITALS: Ht 188 cm; Wt 120.2 kg
[~2021-06-23 06:28] MED LIST changes: -DILT-XR120 MG PO; -MULTAQ 400 MG400 MG PO
[2021-06-23 07:25] LABS: ABSOLUTE NEUTROPHILS 3.3 thou/uL (1.4-8.2); BASOPHILS 0.9 % (0.0-2.0); EOSINOPHILS 3.1 % (0.0-3.0); HEMATOCRIT 40.3 % (42.0-52.0); HEMOGLOBIN 13.5 gm/dL (14.0-18.0); LYMPHOCYTES 27.9 % (24.0-44.0); MCH 32.8 pg (26.0-34.0); MCHC 33.4 g/dL (28.0-37.0); MCV 98.1 fL (80.0-100.0); PLATELET COUNT 179 thou/uL (150-400); POLYS 58.1 % (36.0-66.0); RBC 4.11 mil/uL (4.50-6.00); RDW 16.4 % (10.5-14.5); WBC 5.7 thou/uL (4.0-11.0)
[2021-06-23 07:32] LABS: CALCIUM 9.1 mg/dL (8.5-10.1); CREATININE 1.1 mg/dL (0.7-1.3); POTASSIUM 4.2 mmol/L (3.5-5.1)
[2021-06-23 07:38] LABS: ALBUMIN 3.8 g/dL (3.4-5.0); TOTAL BILIRUBIN 0.7 mg/dL (0.2-1.0); TOTAL PROTEIN 7.4 g/dL (6.4-8.2)
[2021-06-23 07:43] LABS: APTT 28.4 Seconds (24.5-32.8); INR 1.11
[2021-06-23] MEDS ORDERED: MULTAQ 400 MG400 MG PO (16:52)
[2021-06-23] MEDS ORDERED: DILT-XR120 MG PO (16:52)
--- NOTE | 2021-06-23 17:11 | NUR ---
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 Pt SR on the monitor. Around 1540, pt had 11 sec run of vtach on the monitor. This nurse went into the room to check on pt & discovered that pts rt groin site had opened up. Pressure was started at 1544. Pressure was held for 50min without hemostasis achieved. This nurse contacted Dr. Alex x2 to make provider aware. Per Dr. Alex, continued to hold pressure until hemostasis was achieved at 1655. Pt & instructed about new bedrest start x4hr. New dressing was applied. Small hematoma proximal to stick site. Stat mag orders put in for tach. Will continue to monitor closely.
[2021-06-24 04:34] VITALS: BP 141/83
[2021-06-24 07:20] VITALS: BP 124/63
[2021-06-24 11:10] VITALS: BP 131/69
[2021-06-24 11:19] VITALS: BP 124/63
--- NOTE | 2021-06-24 11:38 | P ---
[facility] [place] [address] PROCEDURE REPORT Name: EMORY MAK Room #: 201-P [facility]..#: [id number] Admission: 06/23/21 Attend Phys: Gaurav Alex MD Discharge: Date of : 51 Report #: [id number] THIS REPORT FOR: cc: Bhanu Fernanedz MD, Rene P. MD Couchonnal, Luis F. MD ~ DATE OF PROCEDURE: 06/23/2021. PREOPERATIVE DIAGNOSIS: Atrial fibrillation. POSTOPERATIVE DIAGNOSES: Atrial fibrillation, typical atrial flutter and atypical atrial flutter. HISTORY: The patient is a 65-year-old with history of coronary artery disease, normal ejection fraction, COPD, recently started having symptomatic AFib, failed multiple attempts at cardioversion. He is here for AFib ablation. ANESTHESIA: The patient underwent general anesthesia with no anesthesia related complications. DESCRIPTION OF PROCEDURE: The patient had undergone informed consent. We prepped and draped in a standard fashion. At baseline, he was in atrial fibrillation. I obtained access to the right femoral vein x 3, placing an 8, 9 and 7-Cambodian short sheath using modified Seldinger technique. Under fluoroscopy, I then placed a decapolar catheter into the coronary sinus and an ICE catheter into the right atrium. Using intracardiac ultrasound, I verified there were two left and two right pulmonary veins and this was merged with the patient's CT scan. The patient was systemically heparinized. Transseptal was performed using SL1 sheath and a Bloom[place] needle, which was straightforward and then I exchanged for the cryosheath and the Lasso catheter was placed in the left atrium. A 3D voltage map of the left atrium was created and then we started ablating the pulmonary veins. The left superior pulmonary vein underwent two 4-minute freezes which resulted in isolation. The left inferior pulmonary vein underwent multiple freezes and would not isolate. I then turned my attention to the right superior pulmonary vein and performed a 3-minute freeze and the vein isolated at 37 seconds. The right inferior pulmonary vein underwent a 2-minute freeze and then I performed a 300-second freeze which resulted in isolation. The right inferior was also difficult to get good temps. I then decided to perform a posterior wall isolation as he had a complex fractionated atrial electrograms throughout the posterior wall. I performed a total of 9 freezes anchored from the left superior and the left inferior pulmonary vein. Each of these freezes was of 3 minutes duration and esophageal temperatures were monitored and were found to be stable. Next, a repeat voltage map was created and all veins were isolated except the left inferior pulmonary vein, which had very small signals along the anterior anna. I attempted a [facility] [address] [place] [address] PROCEDURE REPORT Name: EMORY MAK Room #: 201-P [facility] M.R.#: [id number] Admission: 06/23/21 Attend Phys: Gaurav Alex MD Discharge: Date of : 51 Report #: [id number] couple more freezes in this vein. While we prepped the ThermoCool ablation catheter, but these were unsuccessful. Therefore, I went up with a ThermoCool and there was one signal and ablation here resulted in isolation of the vein. I performed some additional ablation here as well. A repeat voltage map also showed that I had not completely isolated the posterior wall. Therefore, I completed the posterior wall isolation ablating along the roof and inferior portions of the left atrium. Of note, while isolating the right-sided veins, the patient had organized from atrial fibrillation into a right-sided atrial flutter with negative sawtooth flutter waves in the inferior leads and proximal to distal activation along the CS with a tachycardia cycle length of 270 milliseconds. After a repeat voltage map in the left atrium, which showed all veins isolated and that the posterior wall was now isolated, we moved onto the right atrium for atrial flutter ablation. I performed ablation at 50 hagen at 6 o'clock along the cavotricuspid isthmus and as we were ablating, the flutter transitioned from a proximal to distal activation into a vertical activation with a shorter cycle length. I continued ablating along the isthmus and there was no further signals here, which was verified with a voltage map and I repeated an activation map in the right atrium and this was no longer CTI dependent flutter and was left sided. At this point, I decided to just cardiovert the patient. The patient underwent a 120 joule cardioversion with advent of sinus rhythm, there were no other arrhythmias noted and intracardiac ultrasound verified, there is no pericardial effusion. As such, the patient received systemic protamine and once ACT was within acceptable range, catheters and sheaths were pulled. Hemostasis was obtained. There were no procedure related complications. CONCLUSION: 1. Successful AFib ablation with isolation of the pulmonary veins. 2. Successful posterior wall isolation with combination cryoablation and RF ablation. 3. Successful atrial flutter ablation with evidence of bidirectional block. 4. Another atypical atrial flutter, not further characterized, which was cardioverted. <ELECTRONICALLY SIGNED> By: Gaurav Alex MD 06/24/21 1138 1139 [id number] Gaurav Alex MD /nt
--- NOTE | 2021-06-24 11:56 | NUR ---
TOOK OVER CARE FOR THIS PATIENT AT 0700. PATIENT RESTING IN BED WHEN BEDSIDE REPORT WAS GIVEN; SPOUSE PRESENT FOR REPORT AND FOR DISCHARGE EDUCATION. PATIENT ON ROOM AIR, DENIES SHORTNESS OF BREATH OR CHEST PAIN. DENIES FATIGUE, HEADACHE, NAUSEA, VOMITING, DIZZINESS, OR PAIN IN THE LEGS. fALL PRECAUTIONS IN PLACE; PATIENT SBA TO BATHROOM. DISCHARGE EDUCATION AND MEDICATION EDUCATION GIVEN TO PATIENT; DENIES ANY QUESTIONS OR CONCERNS. PATIENT DISCHARGED VIA WHEELCHAIR BY NURSING STAFF WITH SPOUSE PRESENT TO PERSONAL VEHICLE.
== END 2021-06-24 14:01 | disposition home or self-care (01) ==
LOC: CATH 06:28 → 2N 14:58
PROVIDERS: ADMIT Internal Medicine Cardiovascular Disease; ATTEND Internal Medicine Cardiovascular Disease
DX: I48.91 Unspecified atrial fibrillation (principal); I48.92 Unspecified atrial flutter; Z20.822 Contact with and (suspected) exposure to COVID-19; I25.10 Atherosclerotic heart disease of native coronary artery without angina pectoris; I73.9 Peripheral vascular disease, unspecified; E78.5 Hyperlipidemia, unspecified; E11.9 Type 2 diabetes mellitus without complications; J44.9 Chronic obstructive pulmonary disease, unspecified; G47.33 Obstructive sleep apnea (adult) (pediatric); G20 Parkinson's disease; I11.0 Hypertensive heart disease with heart failure; I50.30 Unspecified diastolic (congestive) heart failure; F17.210 Nicotine dependence, cigarettes, uncomplicated; Z79.82 Long term (current) use of aspirin; Z79.899 Other long term (current) drug therapy
CPT/HCPCS: 62110; 62900; 70005

== ENCOUNTER → 2021-08-02 | Outpatient (CLI) | payer OTHER ==
[~2021-08-02] MED LIST changes: +DILT-XR120 MG PO; +MULTAQ 400 MG400 MG PO
== END ==
LOC: SJCVCIMAG 08:07
PROVIDERS: ATTEND Nuclear Medicine Nuclear Cardiology
DX: I70.202 Unspecified atherosclerosis of native arteries of extremities, left leg (principal); I25.10 Atherosclerotic heart disease of native coronary artery without angina pectoris; I48.0 Paroxysmal atrial fibrillation; I77.9 Disorder of arteries and arterioles, unspecified; R06.00 Dyspnea, unspecified; G20 Parkinson's disease; F12.10 Cannabis abuse, uncomplicated; M10.9 Gout, unspecified; I50.30 Unspecified diastolic (congestive) heart failure; G47.30 Sleep apnea, unspecified; I72.4 Aneurysm of artery of lower extremity; I11.0 Hypertensive heart disease with heart failure; J43.9 Emphysema, unspecified; E78.00 Pure hypercholesterolemia, unspecified; Z79.899 Other long term (current) drug therapy; Z95.828 Presence of other vascular implants and grafts; Z87.891 Personal history of nicotine dependence; Z82.49 Family history of ischemic heart disease and other diseases of the circulatory system

== ENCOUNTER → 2021-08-16 | Outpatient (CLI) | payer OTHER | LOC: RAD 10:21 | PROVIDERS: ATTEND Family Medicine | DX: S20.212A Contusion of left front wall of thorax, initial encounter (principal); M19.012 Primary osteoarthritis, left shoulder; X58.XXXA Exposure to other specified factors, initial encounter; Y92.89 Other specified places as the place of occurrence of the external cause; Y93.89 Activity, other specified; Y99.8 Other external cause status ==

== ENCOUNTER 2021-08-17 20:19 | Emergency (ER) | payer OTHER ==
[~2021-08-17] VITALS: Ht 188 cm; Wt 120.7 kg
[2021-08-17 23:47] LABS: ABSOLUTE NEUTROPHILS 5.6 thou/uL (1.4-8.2); BASOPHILS 0.5 % (0.0-2.0); EOSINOPHILS 2.2 % (0.0-3.0); HEMOGLOBIN 13.2 gm/dL (14.0-18.0); LYMPHOCYTES 21.4 % (24.0-44.0); MCH 32.5 pg (26.0-34.0); MCHC 33.8 g/dL (28.0-37.0); MCV 96.2 fL (80.0-100.0); MONOCYTES 9.2 % (1.0-8.0); PLATELET COUNT 176 thou/uL (150-400); POLYS 66.7 % (36.0-66.0); RBC 4.05 mil/uL (4.50-6.00); RDW 15.4 % (10.5-14.5); WBC 8.4 thou/uL (4.0-11.0)
[2021-08-17 23:52] LABS: CALCIUM 9.5 mg/dL (8.5-10.1); CREATININE 1.1 mg/dL (0.7-1.3); POTASSIUM 4.3 mmol/L (3.5-5.1)
[2021-08-17 23:54] LABS: INR 1.37; PROTIME 14.7 Seconds (10.5-12.1)
[2021-08-17 23:57] LABS: TOTAL BILIRUBIN 0.7 mg/dL (0.2-1.0)
[2021-08-18 02:30] VITALS: BP 159/75
[2021-08-30] MEDS ORDERED: BELSOMRA10 MG PO (07:50)
== END 2021-08-18 02:40 | disposition home or self-care (01) ==
LOC: ER 20:19
PROVIDERS: Emergency Medicine
DX: S20.219A Contusion of unspecified front wall of thorax, initial encounter (principal); J44.9 Chronic obstructive pulmonary disease, unspecified; I48.91 Unspecified atrial fibrillation; I25.10 Atherosclerotic heart disease of native coronary artery without angina pectoris; M10.9 Gout, unspecified; I10 Essential (primary) hypertension; G20 Parkinson's disease; I50.9 Heart failure, unspecified; F12.90 Cannabis use, unspecified, uncomplicated; Z79.891 Long term (current) use of opiate analgesic; Z79.899 Other long term (current) drug therapy; W18.30XA Fall on same level, unspecified, initial encounter; Y93.89 Activity, other specified; Y92.89 Other specified places as the place of occurrence of the external cause; Y99.8 Other external cause status

== ENCOUNTER → 2021-08-30 | Outpatient (CLI) | payer OTHER ==
[~2021-08-30] VITALS: Ht 188 cm; Wt 120.7 kg
[~2021-08-30] MED LIST changes: +BELSOMRA10 MG PO
[2021-08-30 07:52] VITALS: BP 135/70
[2021-08-30 08:31] LABS: HEMATOCRIT 35.1 % (42.0-52.0); HEMOGLOBIN 11.8 gm/dL (14.0-18.0); MCH 32.6 pg (26.0-34.0); MCHC 33.7 g/dL (28.0-37.0); MCV 96.8 fL (80.0-100.0); RBC 3.63 mil/uL (4.50-6.00); RDW 15.7 % (10.5-14.5); WBC 9.4 thou/uL (4.0-11.0)
[2021-08-30 08:35] LABS: CALCIUM 9.3 mg/dL (8.5-10.1); CREATININE 1.1 mg/dL (0.7-1.3)
[2021-08-30 08:40] LABS: ALBUMIN 3.8 g/dL (3.4-5.0); TOTAL BILIRUBIN 0.6 mg/dL (0.2-1.0); TOTAL PROTEIN 7.6 g/dL (6.4-8.2)
--- NOTE | 2021-08-30 13:50 | NUR ---
PT REQUESTING URINAL. PTS AT BEDSIDE TO ASSIST PT.
--- NOTE | 2021-08-30 14:05 | NUR ---
PT VOIDED 500ML CLEAR URINE
--- NOTE | 2021-08-30 15:08 | NUR ---
PT RESTING COMFORTABLE A/OX3 WITH NO C/O. PT HAS NO REQEUST OR CONCERNS AT THIS TIME.
--- NOTE | 2021-08-30 17:16 | CATHLAB ---
[facility] [place] [address] INVASIVE PROCEDURE REPORT Name: EMORY MAK Room #: REG [facility] ChristopherSandySamantha.#: [id number] Admission: 08/30/21 Attend Phys: Herb Phillip MD Discharge: Date of : 51 Report #: [id number] THIS REPORT FOR: cc: Bhanu Fernandez MD, Rene P. MD Mancuso, Gerald M. MD [facility] ~ APPROVED REPORT Study performed: 08/30/2021 12:15:25 Patient Details Patient Status: Out-Patient Room #: The patient is a 65 year-old male Event Personnel Kenan Nugent Bowl Topper, Michael Guerrero RN RN, Jelena Aguirre RTR, MOTOR BIKE MECHANIC Monitor, Tori Nails RTR LouisaubElton Dexter RN, anode worker Performed Art Access - R femoral artery* Left Heart Cath w/or w/o Coronaries [id number] [facility] Hemostasis w/ Mynx Indication Positive stress test Procedure Narrative A SHEATH BRITE-TIP 6F X 11CM ([id number]) sheath was inserted into the RFA^. Coronary angiography was performed using coronary diagnostic catheters. The right coronary system was accessed and visualized with a JR4 catheter. The left coronary system was accessed and visualized with a JL5 catheter. The left ventricle was accessed and visualized with a PIGTAIL catheter. Left ventricular/Aortic Valve gradient assessed via catheter pullback. Left ventriculogram was performed in 30 degree projection. Closure device was deployed with a 6 Fr MYNXGRIP 6/7F #[id number]. The patient tolerated the procedure well and there were no complications associated with the procedure. There was no hematoma. Intraoperative Conscious Sedation Sedation start time: 10:50 Case end Time: 13:08 Fentanyl 200 mcg Versed 5.5 mg Conscious sedation is a combined total for peripheral procedures and [facility] [place] [address] INVASIVE PROCEDURE REPORT Name: EMORY MAK Room #: REG [facility].#: [id number] Admission: 08/30/21 Attend Phys: Herb Phillip, Discharge: Date of : 51 Report #: [id number] left heart cath. Fluoro time and dosage is a combined total for peripheral procedures and left heart cath. Visipaque is a combined total for peripheral procedures and left ventriculogram. Omnipaqe 350 was used for the coronaries with a total of 80ml. Fluoro Time: 15.70 minutes Dose: DAP 58901.89 cGycm2 2161 mGy Contrast Type and Amount: Visipaque 165 ml Hemodynamics The aortic pressure is 137/59 mmHg with a mean of 73 mmHg. The left ventricular pressure is 156/7 mmHg with a mean of mmHg. The left ventricular end diastolic pressure is 30 mmHg. PCI Technique Lesion Percutaneous coronary intervention was performed on the Prox sup femoral. Conclusion #1 Normal left ventricular size and systolic function EF 60%. #2 left main is short widely patent mildly ectatic and calcified giving rise to LAD and circumflex. #3 the LAD is moderate proximal calcification with mild irregularities it extends to the apex and a large diagonal branch no occlusive disease. #4 there is a ramus intermedius or high rising circumflex OM that has a 50% proximal lesion with mild disease disease. #5 probable a codominant circumflex are anatomically codominant which briskly fills an occluded PDA. No area of high-grade disease. There is a 50% mid vessel lesion and that circumflex #6 dominant right or codominant right is totally occluded and briskly filled PDA JOHN via the left system and distal right coronary retrograde filled. Recommendations and plan: Continue aggressive risk factor modification. This infarct vessel apparently dates back to 1995. The LV function is preserved. There is no area of occlusive disease for intervention. Dr. Phillip performed peripheral intervention see his dictation. <ELECTRONICALLY SIGNED> By: Kenan Nugent MD, FACC 08/30/211715 15 15 Kenan Nugent MD, FACC /INF
== END | disposition home or self-care (01) ==
LOC: CATH 06:48
PROVIDERS: ATTEND Nuclear Medicine Nuclear Cardiology
DX: R94.39 Abnormal result of other cardiovascular function study (principal); I25.10 Atherosclerotic heart disease of native coronary artery without angina pectoris; I70.212 Atherosclerosis of native arteries of extremities with intermittent claudication, left leg; I70.1 Atherosclerosis of renal artery; M79.604 Pain in right leg; M79.605 Pain in left leg; I11.0 Hypertensive heart disease with heart failure; I50.9 Heart failure, unspecified; I48.91 Unspecified atrial fibrillation; J44.9 Chronic obstructive pulmonary disease, unspecified; K21.9 Gastro-esophageal reflux disease without esophagitis; E78.5 Hyperlipidemia, unspecified; F17.210 Nicotine dependence, cigarettes, uncomplicated; Z98.890 Other specified postprocedural states; Z79.899 Other long term (current) drug therapy; Z79.01 Long term (current) use of anticoagulants; Z20.822 Contact with and (suspected) exposure to COVID-19

== ENCOUNTER 2021-09-17 14:15 | Emergency (ER) | payer OTHER ==
[~2021-09-17] VITALS: Ht 188 cm; Wt 122.5 kg
[2021-09-17 15:50] LABS: BASOPHILS 0.6 % (0.0-2.0); EOSINOPHILS 2.5 % (0.0-3.0); HEMATOCRIT 35.3 % (42.0-52.0); HEMOGLOBIN 11.6 gm/dL (14.0-18.0); LYMPHOCYTES 24.6 % (24.0-44.0); MCH 31.4 pg (26.0-34.0); MCHC 32.9 g/dL (28.0-37.0); MCV 95.6 fL (80.0-100.0); MONOCYTES 9.9 % (1.0-8.0); PLATELET COUNT 187 thou/uL (150-400); POLYS 62.4 % (36.0-66.0); RBC 3.69 mil/uL (4.50-6.00); RDW 16.5 % (10.5-14.5)
[2021-09-17 16:04] LABS: CALCIUM 9.4 mg/dL (8.5-10.1); CREATININE 1.2 mg/dL (0.7-1.3); POTASSIUM 4.2 mmol/L (3.5-5.1)
[2021-09-17 16:07] LABS: ALBUMIN 3.7 g/dL (3.4-5.0); TOTAL BILIRUBIN 0.7 mg/dL (0.2-1.0); TOTAL PROTEIN 7.3 g/dL (6.4-8.2)
[2021-09-17 18:16] VITALS: BP 148/75
--- NOTE | 2021-09-18 11:18 | EKG ---
[place] [address] [facility] [place] [address] ELECTROCARDIOGRAM REPORT Name: OBDULIOEMORY ADAIR [id number] Admission: 09/17/21 Attend Phys: Discharge: 09/17/21 Date of : 51 Report #: [id number] [facility] ED Test Date: 2021-09-17 Test Time: 14:13:30 Pat Name: EMORY MAK Department: Room: Gender: M Datastage Consultant: REGINALD : 1955 Requested By: Ruel White Order Number: [id number] MD: Mode Kinsey Measurements Intervals [place] Rate: 85 P: 0 AK: 129 QRS: 42 QRSD: 125 T: 70 QT: 382 QTc: 455 Interpretive Statements Sinus rhythm Nonspecific intraventricular conduction delay Nonspecific ST segment abnormality Compared to ECG 05/26/2021 07:48:49 Intraventricular conduction delay now present Atrial fibrillation no longer present Electronically Signed On 09-18-2021 11:18:27 SHIPPING COORDINATOR by Mode Kinsey [email or web address] <ELECTRONICALLY SIGNED> By: Mode Kinsey MD 09/18/21 1118 1413 1413 MD GISSELL Rodgers
== END 2021-09-17 18:16 | disposition home or self-care (01) ==
LOC: ER 14:15
PROVIDERS: Physician Assistant
DX: R07.89 Other chest pain (principal); I10 Essential (primary) hypertension; Z79.899 Other long term (current) drug therapy

== ENCOUNTER → 2021-09-22 | Outpatient (CLI) | payer OTHER | LOC: SJCVC 14:01 | PROVIDERS: ATTEND Internal Medicine Cardiovascular Disease | DX: I48.0 Paroxysmal atrial fibrillation (principal); I48.3 Typical atrial flutter; I48.92 Unspecified atrial flutter; R00.2 Palpitations; I10 Essential (primary) hypertension; E11.9 Type 2 diabetes mellitus without complications; J44.9 Chronic obstructive pulmonary disease, unspecified; G47.33 Obstructive sleep apnea (adult) (pediatric); E66.9 Obesity, unspecified; G20 Parkinson's disease; Z79.899 Other long term (current) drug therapy; Z98.890 Other specified postprocedural states ==

== ENCOUNTER → 2021-10-04 | Outpatient (CLI) | payer OTHER ==
[2021-10-04 08:34] VITALS: BP 144/65
== END | disposition home or self-care (01) ==
LOC: CATH 07:05
PROVIDERS: ATTEND Internal Medicine Cardiovascular Disease
DX: I48.91 Unspecified atrial fibrillation (principal); R06.00 Dyspnea, unspecified; J44.9 Chronic obstructive pulmonary disease, unspecified; Z98.890 Other specified postprocedural states; Z79.899 Other long term (current) drug therapy; Z79.01 Long term (current) use of anticoagulants